=== PATIENT | male | born 2000 | race African-American/Black ===

== ENCOUNTER 2022-08-19 06:52 | Emergency (ER) | payer OTHER ==
[2022-08-19] MEDS ORDERED: Sodium Chloride 0.9% 2.5 ML Syringe FLUSH PRN (07:26)
[2022-08-19] MEDS ORDERED: Sodium Chloride 0.9% 10 ML Syringe FLUSH PRN (07:26)
[2022-08-19] MEDS ORDERED: Ibuprofen 600 MG Tab PO ONE (07:27)
[2022-08-19 07:46] LABS: POTASSIUM,K 4.2 mmol/L (3.5-5.1)
== END 2022-08-19 10:12 | disposition home or self-care (01) ==
LOC: MW.ED 06:52
DX: R10.84 Generalized abdominal pain (principal)
CPT/HCPCS: 36415; 80053; 81001; 83690; 85025; 99284; J3490; 99283